=== PATIENT | male | born 1970 | race Two or more races ===

== ENCOUNTER 2020-09-05 07:03 | Emergency (ER) | payer MEDICARE, OTHER ==
[~2020-09-05] VITALS: Ht 172.7 cm; Wt 115.9 kg
[2020-09-05 07:09] VITALS: BP 140/98
[2020-09-05] MEDS ORDERED: BUPR1FIL SL (07:16)
[2020-09-05] MEDS ORDERED: LISI-662 PO (07:16)
[2020-09-05] MEDS ORDERED: IBUPROFEN 600 MG TABLET PO ONE (08:00)
== END 2020-09-05 08:42 | disposition home or self-care (01) ==
LOC: EMS 07:03
DX: M72.2 Plantar fascial fibromatosis (principal); I10 Essential (primary) hypertension; F17.210 Nicotine dependence, cigarettes, uncomplicated; Z86.73 Personal history of transient ischemic attack (TIA), and cerebral infarction without residual deficits; Z79.899 Other long term (current) drug therapy
CPT/HCPCS: Z7502; Z7610

== ENCOUNTER 2021-05-02 18:16 | Emergency (ER) | payer MEDICARE, OTHER ==
[~2021-05-02] VITALS: Ht 177.8 cm; Wt 118.2 kg
[~2021-05-02 18:16] MED LIST: BUPR1FIL SL; LISI-894 PO
[2021-05-02] MEDS ORDERED: GABA-1181 PO (18:24)
[2021-05-02] MEDS ORDERED: BUPR1FIL19 SL (19:13)
[2021-05-02] MEDS ORDERED: NICO-703 TD (19:13)
[2021-05-02] MEDS ORDERED: LISINOPRIL 10 MG TABLET PO ONE (19:15)
[2021-05-02 19:51] LABS: BASOPHILS % (AUTO) 0.4 % (0.0-2.0); EOSINOPHILS % (AUTO) 3.9 % (1.0-6.0); HEMATOCRIT 43.1 % (41-53); HEMOGLOBIN 14.4 g/dL (13.5-17.5); LYMPHOCYTES # (AUTO) 2.4 K/uL (1.0-4.8); LYMPHOCYTES % (AUTO) 36.2 % (22.0-44.0); MEAN CORPUSCULAR HEMOGLOBIN 29.5 pg (26.0-34.0); MEAN CORPUSCULAR HGB CONC 33.4 G/dL (31.0-37.0); MEAN CORPUSCULAR VOLUME 89 fL (80-100); MONOCYTES # (AUTO) 0.6 K/uL (0.1-1.0); MONOCYTES % (AUTO) 9.4 % (2.0-9.0); NEUTROPHILS # (AUTO) 3.3 K/uL (1.8-7.7); NEUTROPHILS % (AUTO) 50.1 % (40.0-70.0); PLATELET COUNT (AUTO) 275 K/uL (150-450); RED BLOOD CELL COUNT(AUTO) 4.87 MIL/uL (4.50-5.90); RED CELL DISTRIBUTION WIDTH 13.8 % (11.5-14.5)
[2021-05-02 20:04] LABS: ANION GAP 8 mmol/L (8-16); CALCIUM, TOTAL 8.4 mg/dL (8.8-10.5); CARBON DIOXIDE 27 mmol/L (22-29); CHLORIDE 106 mmol/L (98-107); CREATININE 1.16 mg/dL (0.60-1.30); GLOMERULAR FILTR. RATE CALC > 60 mL/min (>60); GLUCOSE,RANDOM 128 mg/dL (70-110); POTASSIUM 3.6 mmol/L (3.5-5.1); PROTHROMBIN TIME 10.7 SEC (9.4-11.6); SODIUM SERUM 141 mmol/L (136-145); UREA NITROGEN, BLOOD 16 mg/dL (7-18)
[2021-05-02 20:10] LABS: ALANINE AMINOTRANSFERASE 43 U/L (12-78); ALBUMIN 3.4 g/dL (3.4-5.0); ALKALINE PHOSPHATASE 131 U/L (46-116); ASPARTATE AMINOTRANSFERASE 26 U/L (15-37); BILIRUBIN,TOTAL 0.3 mg/dL (0.1-1.0); TOTAL PROTEIN, SERUM 7.8 g/dL (6.4-8.2)
[2021-05-02] MEDS ORDERED: CloNIDine HCL 0.1 MG TABLET PO ONE (21:00)
[2021-05-02 22:09] VITALS: BP 168/104
== END 2021-05-02 23:56 | disposition left against medical advice (07) ==
LOC: EMS 18:19
DX: I10 Essential (primary) hypertension (principal); R51.9 Headache, unspecified; F17.210 Nicotine dependence, cigarettes, uncomplicated; Z86.73 Personal history of transient ischemic attack (TIA), and cerebral infarction without residual deficits; Z79.899 Other long term (current) drug therapy
CPT/HCPCS: 70450; 80053; 84484; 85025; 85610; 85730; 93005; 99285